=== PATIENT | male | born 1960 | race Caucasian/White ===

== ENCOUNTER 2016-06-19 14:07 | Inpatient (IN) | payer OTHER ==
[~2016-06-19] VITALS: Ht 177.8 cm; Wt 72.7 kg
[2016-06-19] MEDS ORDERED: DIABETES MED (14:38)
[2016-06-19] MEDS ORDERED: GLC500 (14:38)
[2016-06-19] MEDS ORDERED: ONDANSETRON INJ 2 MG/ML 2 ML VIAL IV STA (14:52)
[2016-06-19] MEDS ORDERED: MoRPHine SULFATE 10 MG/ML CARP/VIAL IV STA (14:52)
[2016-06-19] MEDS ORDERED: SODIUM CHLORIDE 0.9% 1000ML 1,000 ML IV STA ×2 (14:52→16:50)
[2016-06-19] MEDS ORDERED: DIPHTHERIA/TETANUS/PERTUSSIS 0.5 ML SYR/VIAL IM. ONE (15:00)
[2016-06-19] MEDS ORDERED: OPTIRAY 320 IV PRN (15:15)
[2016-06-19 15:16] LABS: ISTAT CREATININE 0.8 mg/dl (0.6-1.3); ISTAT HEMOGLOBIN 17.7 g/dl (14.0-18.0); ISTAT IONIZED CALCIUM 1.18 mmol/l (1.12-1.32)
[2016-06-19 15:17] LABS: HEMATOCRIT 46.7 % (42-52); MEAN CELL VOLUME 83.4 fL (80-100); MEAN CORPUSCULAR HEMOGLOBIN 31.4 pg (25-34); MEAN CORPUSCULAR HGB CONC 37.7 g/dl (32-36); MEAN PLATELET VOLUME 10.5 fL (7.4-10.4); PLATELET COUNT 260 K/uL (130-400); WHITE BLOOD COUNT 18.59 K/uL (4.8-10.8)
[2016-06-19 15:22] LABS: URINE APPEARANCE CLEAR (CLEAR); URINE BILIRUBIN NEG (NEG); URINE COLOR YELLOW; URINE EPITHELIAL CELL AUTO 0-5 /lpf (0-5); URINE NITRITE NEG (NEG); URINE SPECIFIC GRAVITY 1.033 (1.000-1.030); UROBILINOGEN NEG (NEG)
[2016-06-19 15:25] LABS: MANUAL MICROSCOPIC REQUIRED? NO; REVIEW REQ? NO
[2016-06-19 15:37] LABS: PROTHROMBIN TIME (PATIENT) 10.3 SECONDS (9.0-12.0)
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
[2016-06-19] MEDS ORDERED: HYDROmorphone INJ 1 MG/ML SYR IV STA (15:45)
[2016-06-19 15:46] LABS: BASO % 0.2 %; BASO ABS # 0.03 K/uL (0-0.2); COMPLETE YES; EOS % 0.1 %; GIANT PLATELETS 1+; IG% 0.6 %; LYMPH % 5.9 %; LYMPH ABS # 1.09 K/uL (1.2-3.4); MONO % 6.8 %; NEUT % 86.4 %; SPHEROCYTE 2+
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
[2016-06-19 15:54] LABS: ALKALINE PHOSPHATASE 149 U/L (45-117); ALT/SGPT 58 U/L (12-78); AST/SGOT 36 U/L (15-37); BLOOD UREA NITROGEN 14 mg/dl (7-18); BUN/CREATININE RATIO 11.3 (10-20); CALCIUM 9.2 mg/dl (8.5-10.1); CARBON DIOXIDE 24 mmol/L (21-32); CHLORIDE 99 mmol/L (98-107); GLUCOSE 401 mg/dl (70-99); POTASSIUM 3.8 mmol/L (3.5-5.1); SODIUM 136 mmol/L (136-145)
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
[2016-06-19] MEDS ORDERED: NovoLIN-R INSULIN PER UNIT CHARGE SC STA (16:50)
[2016-06-19] MEDS ORDERED: INSULIN HUMAN REGULAR SC STA (16:55)
[2016-06-19] MEDS ORDERED: ONDANSETRON INJ 2 MG/ML 2 ML VIAL IV PRN (17:30)
[2016-06-19] MEDS ORDERED: MAGNESIUM HYDROXIDE SUSP 30 ML UDC PO PRN (17:30)
[2016-06-19] MEDS ORDERED: ACETAMINOPHEN 325 MG TAB PO PRN (17:30)
[2016-06-19] MEDS ORDERED: HydrALAZINE HCL 20 MG/ML VIAL IV. PRN (17:30)
[2016-06-19] MEDS ORDERED: ZOLPIDEM TARTRATE 5 MG TAB PO PRN (17:30)
[2016-06-19] MEDS ORDERED: ALUMINUM/MAGNESIUM/SIMETH (MAALOX MAX) 30 ML UDC PO PRN (17:30)
[2016-06-19] MEDS ORDERED: POLYETHYLENE (MIRALAX) 17 GM PACK PO PRN (17:30)
[2016-06-19] MEDS ORDERED: HYDROCODONE/ACETAMOPHEN 5/325MG TAB PO PRN (17:30)
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
[2016-06-19 18:57] LABS: BLOOD UREA NITROGEN 11 mg/dl (7-18); BUN/CREATININE RATIO 10.9 (10-20); C-REACTIVE PROTEIN < 0.29 mg/dl (0-0.29); CALCIUM 8.5 mg/dl (8.5-10.1); CARBON DIOXIDE 28 mmol/L (21-32); CHLORIDE 104 mmol/L (98-107); GLUCOSE 288 mg/dl (70-99); PHOSPHORUS 2.8 mg/dl (2.5-4.9); POTASSIUM 4.2 mmol/L (3.5-5.1); SODIUM 139 mmol/L (136-145)
[2016-06-19 19:29] VITALS: BP 167/101; PULSE 73; TEMP 37; O2SAT 96; BMI 21.8
[2016-06-19] MEDS ORDERED: GLUCAGON FOR INJ 1 MG VIAL SQ PRN (19:30)
[2016-06-19] MEDS ORDERED: GLUCOSE 40% GEL 15 GM TUBE PO PRN (19:30)
[2016-06-19] MEDS ORDERED: DEXTROSE 50% 50 ML SYR IV PRN (19:30)
[2016-06-19] MEDS ORDERED: GLUCOSE 10 TABS/TUBE PO PRN (19:30)
[2016-06-19] MEDS ORDERED: LISINOPRIL 5 MG TAB PO ONE (19:30)
[2016-06-19] MEDS: HYDROCODONE/ACETAMOPHEN 5/325MG TAB PO PRN (19:34)
[2016-06-19] MEDS ORDERED: PANTOprazole SOD 40 MG TAB PO ONE (19:45)
[2016-06-19] MEDS: SODIUM CHLORIDE 0.9% 1000ML 1,000 ML IV SCH (19:56)
[2016-06-19] MEDS: HEPARIN SOD 5000 UNIT/0.5 ML CARP SQ SCH (19:57)
[2016-06-19 20:00] VITALS: O2SAT 96
[2016-06-19] MEDS: MoRPHine SULFATE 4 MG/ML 1 ML CARP\\VIAL IV PRN (20:00)
[2016-06-19] MEDS ORDERED: INSULIN GLARGINE SOLOSTAR 100 UNITS/ML 3 ML PEN SC SCH (21:00)
[2016-06-19] MEDS ORDERED: HEPARIN SOD 5000 UNIT/0.5 ML CARP SQ SCH (21:00)
[2016-06-19] MEDS: INSULIN ASPART 100 UNITS/ML 3 ML PEN SC SCH (21:11)
[2016-06-19 21:24] VITALS: BP 156/95
[2016-06-20] VITALS (9 sets, daily range): BP systolic 103–168; BP diastolic 68–102; PULSE 55–89; TEMP 37–37.4; O2SAT 92–98
[2016-06-20 00:29] LABS: BUN/CREATININE RATIO 10.2 (10-20); CALCIUM 8.4 mg/dl (8.5-10.1); CREATININE 0.91 mg/dl (0.60-1.40); POTASSIUM 3.8 mmol/L (3.5-5.1)
[2016-06-20] MEDS: HYDROCODONE/ACETAMOPHEN 5/325MG TAB PO PRN (03:05)
[2016-06-20 05:59] LABS: ESTIMATED AVERAGE GLUCOSE 295 mg/dl; HA1C FLAG Normal (Normal)
[2016-06-20] MEDS: SODIUM CHLORIDE 0.9% 1000ML 1,000 ML IV SCH ×4 (07:21→14:12)
[2016-06-20] MEDS: LISINOPRIL 5 MG TAB PO SCH (07:58)
[2016-06-20] MEDS: HEPARIN SOD 5000 UNIT/0.5 ML CARP SQ SCH (07:58)
[2016-06-20] MEDS: PANTOprazole SOD 40 MG TAB PO SCH (07:58)
[2016-06-20] MEDS: MoRPHine SULFATE 4 MG/ML 1 ML CARP\\VIAL IV PRN (08:00)
[2016-06-20] MEDS: INSULIN ASPART 100 UNITS/ML 3 ML PEN SC SCH ×3 (08:26→19:22)
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
[2016-06-20] MEDS ORDERED: INSULIN GLARGINE SOLOSTAR 100 UNITS/ML 3 ML PEN SC SCH ×2 (10:30→21:00)
[2016-06-20] MEDS: LIDODERM (LIDOCAINE) PATCH 5% TD SCH (11:25)
[2016-06-20 11:55] LABS: CKMB/CK RATIO 0.7 (0-3.0)
[2016-06-20] MEDS: HYDROmorphone INJ 0.5 MG/0.5 ML SYR IV PRN ×3 (13:43→23:57)
--- NOTE | 2016-06-20 13:44 | DIAGNOSTIC IMAGING REPORT ---
RIGHT SHOULDER 2 VIEWS; RIGHT CLAVICLE 2 VIEWS CLINICAL HISTORY: Right shoulder pain. FINDINGS: 2 views of the right shoulder and 2 views of the right clavicle are obtained. Correlation is made with chest CT dated 06/19/2016. The skeletal structures are well mineralized. There is no radiographic evidence of fracture involving the right clavicle or the right shoulder. The right sternoclavicular and acromioclavicular joints are well-maintained. The glenohumeral articulation is preserved. The overlying soft tissues are within normal limits. The visualized right lung parenchyma appears clear. IMPRESSION: 1. Unremarkable radiographic assessment of the right shoulder and the right clavicle. 2. These were better assessed on yesterday's chest CT. Electronically signed by: Santo Blake M.D. 06/20/2016 1:43 PM Dictated Date/Time: 06/20/2016 1:39 PM
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
[2016-06-20] MEDS: ACETAMINOPHEN 500 MG TAB PO SCH ×2 (14:00→22:04)
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
[2016-06-20] MEDS ORDERED: ENOXAPARIN 40 MG/0.4 ML SYR SQ ONE (21:00)
[2016-06-20] MEDS ORDERED: HYDROmorphone INJ 1 MG/ML SYR IV ONE (21:45)
[2016-06-20] MEDS ORDERED: NURSING VERBAL MED ORDER ONE (21:45)
[2016-06-21] VITALS (10 sets, daily range): BP systolic 131–154; BP diastolic 80–95; PULSE 67–84; TEMP 36.6–37.3; O2SAT 93–95; BMI 22.9
[2016-06-21] MEDS: ACETAMINOPHEN 500 MG TAB PO SCH (05:36)
[2016-06-21] MEDS: HYDROmorphone INJ 0.5 MG/0.5 ML SYR IV PRN ×5 (05:37→22:25)
[2016-06-21 06:17] LABS: CALCIUM 8.3 mg/dl (8.5-10.1); CREATININE 0.98 mg/dl (0.60-1.40); POTASSIUM 3.6 mmol/L (3.5-5.1)
[2016-06-21] MEDS: KETOROLAC TROMETHAMINE 30 MG/ML VIAL IV SCH ×3 (08:12→19:43)
[2016-06-21] MEDS: INSULIN ASPART 100 UNITS/ML 3 ML PEN SC SCH ×5 (08:20→22:31)
[2016-06-21] MEDS: PANTOprazole SOD 40 MG TAB PO SCH (08:24)
[2016-06-21] MEDS: LISINOPRIL 5 MG TAB PO SCH (08:24)
[2016-06-21] MEDS: LIDODERM (LIDOCAINE) PATCH 5% TD SCH (08:24)
[2016-06-21] MEDS: INSULIN GLARGINE SOLOSTAR 100 UNITS/ML 3 ML PEN SC SCH ×2 (09:20→22:32)
[2016-06-21] MEDS: ERGOCALCIFEROL 50,000 INTER.UNIT CAP PO SCH (09:40)
--- NOTE | 2016-06-21 10:58 | DIAGNOSTIC IMAGING REPORT ---
CHEST ONE VIEW PORTABLE CLINICAL HISTORY: eval for subcu emphysema, pneumothorax on R, etc COMPARISON STUDY: No previous studies for comparison. FINDINGS: As well as clear. No evidence pneumothorax. Atelectasis left base. No evidence for cardiac enlargement. IMPRESSION: Platelike atelectasis left base. Otherwise negative study. No evidence pneumothorax or subcutaneous emphysema Electronically signed by: Jacinto Adair M.D. 06/21/2016 10:57 AM Dictated Date/Time: 06/21/2016 10:56 AM
[2016-06-21] MEDS: ENOXAPARIN 40 MG/0.4 ML SYR SQ SCH (11:00)
[2016-06-21] MEDS ORDERED: ACETAMINOPHEN 500 MG TAB PO PRN (14:00)
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
[2016-06-21] MEDS ORDERED: SENNA 8.6 MG TAB PO ONE (16:00)
[2016-06-21] MEDS: POLYETHYLENE (MIRALAX) 17 GM PACK PO SCH (16:00)
[2016-06-21] MEDS: CARISOPRODOL 350 MG TAB PO PRN (18:31)
[2016-06-22] VITALS (8 sets, daily range): BP systolic 100–130; BP diastolic 63–73; PULSE 55–69; TEMP 36.5–37.2; O2SAT 92–96; BMI 23.0
[2016-06-22] MEDS: KETOROLAC TROMETHAMINE 30 MG/ML VIAL IV SCH (01:53)
[2016-06-22] MEDS: CARISOPRODOL 350 MG TAB PO PRN ×2 (02:26→17:02)
[2016-06-22] MEDS: ACETAMINOPHEN 500 MG TAB PO PRN ×2 (02:27→22:07)
[2016-06-22] MEDS: HYDROmorphone INJ 0.5 MG/0.5 ML SYR IV PRN ×5 (02:33→22:08)
[2016-06-22 06:33] LABS: HEMATOCRIT 37.4 % (42-52); MEAN CELL VOLUME 86.2 fL (80-100); MEAN CORPUSCULAR HEMOGLOBIN 30.9 pg (25-34); MEAN CORPUSCULAR HGB CONC 35.8 g/dl (32-36); MEAN PLATELET VOLUME 10.1 fL (7.4-10.4); PLATELET COUNT 214 K/uL (130-400); RED BLOOD COUNT 4.34 M/uL (4.7-6.1); WHITE BLOOD COUNT 11.65 K/uL (4.8-10.8)
[2016-06-22 07:03] LABS: BUN/CREATININE RATIO 26.3 (10-20); CALCIUM 8.3 mg/dl (8.5-10.1); CREATININE 1.2 mg/dl (0.60-1.40); POTASSIUM 3.8 mmol/L (3.5-5.1)
[2016-06-22] MEDS: OXYCODONE HCL IR 5 MG TAB (IMMEDIATE RELEASE) PO PRN ×2 (08:49→16:14)
[2016-06-22] MEDS: LISINOPRIL 5 MG TAB PO SCH (08:50)
[2016-06-22] MEDS: PANTOprazole SOD 40 MG TAB PO SCH (08:51)
[2016-06-22] MEDS: LIDODERM (LIDOCAINE) PATCH 5% TD SCH (08:52)
[2016-06-22] MEDS: ENOXAPARIN 40 MG/0.4 ML SYR SQ SCH (08:52)
[2016-06-22] MEDS: SENNA 8.6 MG TAB PO SCH (08:53)
[2016-06-22] MEDS: POLYETHYLENE (MIRALAX) 17 GM PACK PO SCH (08:53)
[2016-06-22] MEDS: INSULIN GLARGINE SOLOSTAR 100 UNITS/ML 3 ML PEN SC SCH ×2 (09:14→22:16)
[2016-06-22] MEDS: INSULIN ASPART 100 UNITS/ML 3 ML PEN SC SCH ×4 (09:14→21:00)
[2016-06-22] MEDS ORDERED: PHARMACY GLYCEMIC MGMT CONSULT PRN (11:06)
[2016-06-22] MEDS ORDERED: FENTANYL 12 MCG/HR TDSY TD SCH (12:30)
--- NOTE | 2016-06-22 13:42 | Pharmacy Progress Note ---
Glycemic Control Intl Consult Date of Service Jun 22, 2016. Scope Glycemic Pharmacist consulted for glycemic control and to write orders per [facility] inpatient glycemic control protocol Objective Weight (Kilograms): 72.700 Accuchecks BSG (last 24hrs): Test 06/21/16 13:33 06/21/16 18:35 06/21/16 22:24 06/22/16 06:07 Bedside Glucose 292 mg/dl (70-99) 160 mg/dl (70-99) 206 mg/dl (70-99) Random Glucose 255 mg/dl (70-99) Test 06/22/16 06:54 06/22/16 11:41 Bedside Glucose 285 mg/dl (70-99) 165 mg/dl (70-99) Laboratory Data (last 24hrs) Test 06/22/16 06:07 Anion Gap 11.0 mmol/L BUN/Creatinine Ratio 26.3 Blood Urea Nitrogen 32 mg/dl Creatinine 1.20 mg/dl Potassium Level 3.8 mmol/L Sodium Level 138 mmol/L White Blood Count 11.65 K/uL HbA1c Test 06/19/16 13:00 Hemoglobin A1c 11.9 % (4.5-5.6) H Recent Pertinent Medications Outpatient Anti-diabetic Regimen: * Metformin - unknown dose The patient is currently receiving: * Basal insulin: Lantus 16 units every 12 hours * Correctional Insulin: Novolog Correction per scale ACHS Goal Range: Low 100 mg/dL - High 150 mg/dL Correction Factor: 18 mg/dL/unit * Prandial insulin: Per carb ratio of 1 unit per 6 grams CHO consumed Risk Factors for Insulin Resistance: * Physiological stress 2nd pain * Diet: T1DM/Kosher Assessment & Plan ASSESSMENT: * ADA & AACE recommend a goal blood sugar range 140-180 mg/dl for the majority of critically ill & non-critically ill patients. However, more stringent targets may be selected in individual cases. * 55 yo M with ?T2DM vs. T1DM not well controlled on metformin alone. Estimated average glucose 295 mg/dL * Per Brissa (certified lactation educator) * Pt reports 10 yr hs type 2 DM on pills then states A1c went from 7-9% then 13 % a few years back. * He states he was told~ 1 yr ago to start insulin but he did not. * Per Dr. Cedillo * His eating patterns while hospitalized have been very erratic and are very high in carbohydrates due to his strict Cheondoism customs & diet. * He also tends to be grazing throughout the day making carb counting and covering the carbs difficult. * Both Brissa and Dr. Cedillo have discussed need for insulin as outpatient * Tight inpatient and outpatient glycemic control may prove difficult * Ethan hebert RN - notes that 285 mg/dL this AM was likely post-prandial. Will therefore maintain current Lantus dose but will add parameters for dose reduction based on BSG * Correction factor and carb ratio both tightened last night. Lunch BSG good today at 165 mg/dL. No change for now. * Will add overnight check both to better assess fasting BSG and to provide additional insulin if necessary PLAN FOR INPATIENT GLYCEMIC CONTROL: * Basal insulin with LANTUS SQ BID based on BSG * 10 units for BSG < 110 mg/dL * 16 units for BSG 110 mg/dL or greater * Correctional Insulin with NOVOLOG per scale ACHS or Q6hrs while NPO - add 0200 check * Goal Range: Low 100 mg/dL - High 150 mg/dL * Correction Factor: 18 mg/dL/unit * Nutritional / Prandial insulin per carb ratio of 1 unit per 6 grams CHO consumed RECOMMENDATIONS FOR DISCHARGE * Will require basal/bolus. Cannot yet determine specific dosing needs * Cost may be an issue (per Brissa) * Please note that the plan above was derived based on current level of insulin resistance and hospital stress. These recommendations are appropriate for inpatient admission only. Plan of care upon discharge will need to be reassessed to avoid potential outpatient hypo/hyperglycemia. Thank you.
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
[2016-06-22] MEDS ORDERED: NURSING VERBAL MED ORDER ONE (15:30)
[2016-06-22] MEDS: CHECK FENTANYL PATCH PLACEMENT SCH ×2 (15:31→23:15)
[2016-06-22] MEDS: DIAZEPAM 5MG TAB PO SCH (22:06)
[2016-06-22] MEDS: DICLOFENAC SOD EC 75 MG TABCR PO SCH (22:07)
[2016-06-23] MEDS ORDERED: INSULIN ASPART 100 UNITS/ML 3 ML PEN SC ONE (02:00)
[2016-06-23 07:11] VITALS: BP 138/77; PULSE 60; TEMP 36.7; O2SAT 97
[2016-06-23] MEDS: HYDROmorphone INJ 0.5 MG/0.5 ML SYR IV PRN (07:21)
[2016-06-23] MEDS: CHECK FENTANYL PATCH PLACEMENT SCH ×2 (07:26→15:15)
[2016-06-23] MEDS: ACETAMINOPHEN 500 MG TAB PO PRN (07:56)
[2016-06-23 08:40] LABS: BASO % 0.4 %; BASO ABS # 0.04 K/uL (0-0.2); COMPLETE YES; EOS % 1.5 %; HEMATOCRIT 41.4 % (42-52); IG% 0.4 %; LYMPH % 12.6 %; MEAN CELL VOLUME 86.6 fL (80-100); MEAN CORPUSCULAR HEMOGLOBIN 30.8 pg (25-34); MEAN CORPUSCULAR HGB CONC 35.5 g/dl (32-36); MEAN PLATELET VOLUME 9.9 fL (7.4-10.4); MONO % 10.6 %; NEUT % 74.5 %; PLATELET COUNT 241 K/uL (130-400); RED BLOOD COUNT 4.78 M/uL (4.7-6.1); WHITE BLOOD COUNT 10.31 K/uL (4.8-10.8)
[2016-06-23] MEDS: DICLOFENAC SOD EC 75 MG TABCR PO SCH ×2 (08:56→20:52)
[2016-06-23] MEDS: POLYETHYLENE (MIRALAX) 17 GM PACK PO SCH (09:00)
[2016-06-23] MEDS: INSULIN GLARGINE SOLOSTAR 100 UNITS/ML 3 ML PEN SC SCH ×2 (09:03→20:59)
[2016-06-23 09:05] LABS: BUN/CREATININE RATIO 22.6 (10-20); CALCIUM 9.3 mg/dl (8.5-10.1); POTASSIUM 3.7 mmol/L (3.5-5.1)
[2016-06-23] MEDS: LISINOPRIL 5 MG TAB PO SCH (09:45)
[2016-06-23] MEDS: SENNA 8.6 MG TAB PO SCH (09:46)
[2016-06-23] MEDS: PANTOprazole SOD 40 MG TAB PO SCH (09:46)
[2016-06-23] MEDS: LIDODERM (LIDOCAINE) PATCH 5% TD SCH (09:47)
[2016-06-23] MEDS: INSULIN ASPART 100 UNITS/ML 3 ML PEN SC SCH ×4 (09:51→20:58)
[2016-06-23] MEDS: CARISOPRODOL 350 MG TAB PO PRN ×2 (09:54→22:35)
[2016-06-23] MEDS ORDERED: FENTANYL PATCH REMOVE & WASTE SCH (12:59)
[2016-06-23] MEDS ORDERED: FENTANYL 25 MCG/HR TDSY TD SCH (13:00)
[2016-06-23 15:06] VITALS: BP 134/87; PULSE 66; TEMP 36.6; O2SAT 96
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
[2016-06-23] MEDS ORDERED: METHYLPREDNISOLONE IV 125 MG in SYRINGE 0 ML IV ONE (17:00)
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
[2016-06-23] MEDS ORDERED: GADAVIST IV PRN (19:15)
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
[2016-06-23] MEDS: DIAZEPAM 5MG TAB PO SCH (20:51)
[2016-06-23] MEDS: OXYCODONE HCL IR 5 MG TAB (IMMEDIATE RELEASE) PO PRN (22:28)
[2016-06-23 23:05] VITALS: BP 122/72; PULSE 61; TEMP 36.9; O2SAT 95
[2016-06-24] MEDS: INSULIN ASPART 100 UNITS/ML 3 ML PEN SC SCH ×6 (00:24→20:51)
[2016-06-24] MEDS: CHECK FENTANYL PATCH PLACEMENT SCH ×4 (00:27→23:45)
[2016-06-24] MEDS: ACETAMINOPHEN 500 MG TAB PO PRN (00:36)
[2016-06-24] MEDS: METHYLPREDNISOLONE 4 MG TAB PO SCH ×4 (06:22→20:57)
[2016-06-24] MEDS: CARISOPRODOL 350 MG TAB PO PRN (07:23)
[2016-06-24] MEDS: OXYCODONE HCL IR 5 MG TAB (IMMEDIATE RELEASE) PO PRN ×2 (07:24→21:38)
[2016-06-24] MEDS ORDERED: METHYLPREDNISOLONE 4MG TAB, 6 DAY TAPER PO SCH (07:30)
[2016-06-24 08:16] VITALS: BP 115/70; PULSE 62; TEMP 36.6; O2SAT 94
[2016-06-24] MEDS: PANTOprazole SOD 40 MG TAB PO SCH (08:25)
[2016-06-24 08:27] VITALS: O2SAT 94
[2016-06-24] MEDS: DICLOFENAC SOD EC 75 MG TABCR PO SCH ×2 (08:28→20:57)
[2016-06-24] MEDS: SENNA 8.6 MG TAB PO SCH (08:30)
[2016-06-24] MEDS: POLYETHYLENE (MIRALAX) 17 GM PACK PO SCH (08:30)
[2016-06-24] MEDS: LISINOPRIL 5 MG TAB PO SCH (08:30)
[2016-06-24] MEDS: INSULIN GLARGINE SOLOSTAR 100 UNITS/ML 3 ML PEN SC SCH ×2 (08:34→20:52)
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
[2016-06-24 15:49] VITALS: BP 113/67; PULSE 64; TEMP 36.7; O2SAT 94
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
[2016-06-24] MEDS: DIAZEPAM 5MG TAB PO SCH (23:44)
[2016-06-24 23:49] VITALS: BP 131/79; PULSE 54; TEMP 36.4; O2SAT 96
[2016-06-25] MEDS: INSULIN ASPART 100 UNITS/ML 3 ML PEN SC SCH ×6 (01:03→21:24)
[2016-06-25] MEDS: CARISOPRODOL 350 MG TAB PO PRN ×2 (04:52→16:00)
[2016-06-25] MEDS: METHYLPREDNISOLONE 4 MG TAB PO SCH ×4 (06:31→18:08)
[2016-06-25 06:42] LABS: HEMATOCRIT 37.1 % (42-52); MEAN CELL VOLUME 86.7 fL (80-100); MEAN CORPUSCULAR HEMOGLOBIN 31.1 pg (25-34); MEAN CORPUSCULAR HGB CONC 35.8 g/dl (32-36); MEAN PLATELET VOLUME 9.7 fL (7.4-10.4); PLATELET COUNT 264 K/uL (130-400); RED BLOOD COUNT 4.28 M/uL (4.7-6.1); WHITE BLOOD COUNT 10.89 K/uL (4.8-10.8)
[2016-06-25 07:13] VITALS: BP 133/83; PULSE 50; TEMP 36.3; O2SAT 95
[2016-06-25] MEDS: OXYCODONE HCL IR 5 MG TAB (IMMEDIATE RELEASE) PO PRN ×3 (07:30→21:19)
[2016-06-25] MEDS: CHECK FENTANYL PATCH PLACEMENT SCH ×2 (07:31→16:02)
[2016-06-25] MEDS: LISINOPRIL 5 MG TAB PO SCH (09:00)
[2016-06-25] MEDS: SENNA 8.6 MG TAB PO SCH (09:00)
[2016-06-25] MEDS: POLYETHYLENE (MIRALAX) 17 GM PACK PO SCH (09:00)
[2016-06-25] MEDS: PANTOprazole SOD 40 MG TAB PO SCH (09:27)
[2016-06-25] MEDS: ERGOCALCIFEROL 50,000 INTER.UNIT CAP PO SCH (09:27)
[2016-06-25] MEDS: DICLOFENAC SOD EC 75 MG TABCR PO SCH ×2 (09:27→21:18)
[2016-06-25] MEDS: INSULIN GLARGINE SOLOSTAR 100 UNITS/ML 3 ML PEN SC SCH ×2 (10:11→21:22)
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
[2016-06-25] MEDS ORDERED: FENTANYL PATCH REMOVE & WASTE SCH (12:29)
[2016-06-25] MEDS ORDERED: INSULIN GLARGINE SOLOSTAR 100 UNITS/ML 3 ML PEN SC ONE (13:15)
[2016-06-25 15:38] VITALS: BP 129/80; PULSE 59; TEMP 36.5; O2SAT 96
[2016-06-25 16:17] VITALS: Ht 177.8 cm; Wt 72.7 kg
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
[2016-06-25] MEDS ORDERED: METHYLPREDNISOLONE 4 MG TAB PO SCH (21:00)
[2016-06-25] MEDS: DIAZEPAM 5MG TAB PO SCH (21:18)
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
[2016-06-25 23:17] VITALS: BP 127/79; PULSE 58; TEMP 36.8; O2SAT 93
[2016-06-26] MEDS: CHECK FENTANYL PATCH PLACEMENT SCH ×2 (00:27→08:19)
[2016-06-26] MEDS: CARISOPRODOL 350 MG TAB PO PRN ×2 (00:30→08:44)
[2016-06-26] MEDS: INSULIN ASPART 100 UNITS/ML 3 ML PEN SC SCH ×3 (00:32→09:22)
[2016-06-26] MEDS: OXYCODONE HCL IR 5 MG TAB (IMMEDIATE RELEASE) PO PRN ×2 (04:24→10:29)
[2016-06-26] MEDS ORDERED: METHYLPREDNISOLONE 4 MG TAB PO SCH (07:00)
[2016-06-26 07:26] LABS: CREATININE 1.2 mg/dl (0.60-1.40)
[2016-06-26 07:28] VITALS: BP 107/69; PULSE 49; TEMP 36.4; O2SAT 96
[2016-06-26] MEDS ORDERED: PRT40 PO (08:30)
[2016-06-26] MEDS ORDERED: OXYC-57 PO (08:30)
[2016-06-26] MEDS ORDERED: SM350 PO (08:30)
[2016-06-26] MEDS ORDERED: VLM5 PO (08:30)
[2016-06-26] MEDS ORDERED: DRGTP25 TD (08:30)
[2016-06-26] MEDS ORDERED: SNK PO (08:30)
[2016-06-26] MEDS ORDERED: VLT75 PO (08:30)
[2016-06-26] MEDS: SENNA 8.6 MG TAB PO SCH (08:45)
[2016-06-26] MEDS: PANTOprazole SOD 40 MG TAB PO SCH (08:45)
[2016-06-26] MEDS: POLYETHYLENE (MIRALAX) 17 GM PACK PO SCH (08:45)
[2016-06-26] MEDS: DICLOFENAC SOD EC 75 MG TABCR PO SCH (08:46)
[2016-06-26] MEDS: LISINOPRIL 5 MG TAB PO SCH (08:46)
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
[2016-06-26] MEDS ORDERED: NURSING DECISION MEDICATION ORDER SCH ×2 (09:00→10:45)
[2016-06-26] MEDS: INSULIN GLARGINE SOLOSTAR 100 UNITS/ML 3 ML PEN SC SCH (09:13)
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
[2016-06-26] MEDS ORDERED: FENTANYL PATCH REMOVE & WASTE SCH (09:29)
[2016-06-26] MEDS ORDERED: FENTANYL 25 MCG/HR TDSY TD SCH (09:30)
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
[2016-06-26 10:08] VITALS: BP 107/69; PULSE 49; TEMP 36.4; O2SAT 96
[2016-06-26] MEDS ORDERED: DICLOFENAC SOD EC 75 MG TABCR PO SCH (11:00)
[2016-06-27] MEDS ORDERED: METHYLPREDNISOLONE 4 MG TAB PO SCH (07:00)
[2016-06-28 03:15] LABS: GLUTAMIC ACID DECARBOXYLASE-65 <5 IU/mL (<5); INSULIN AUTOANTIBODY 36178 <0.4 U/mL (<0.4); ISLET CELL AB NEGATIVE (NEGATIVE)
[2016-06-28] MEDS ORDERED: METHYLPREDNISOLONE 4 MG TAB PO SCH (07:00)
[2016-06-29] MEDS ORDERED: METHYLPREDNISOLONE 4 MG TAB PO SCH (07:00)
== END 2016-06-26 11:45 | disposition home or self-care (01) | DRG 552 ==
LOC: ENRESERVTM → ENRESERVDT → EDBD 14:07 → C.EDB 14:09 → C.2T 19:13 → C.2E 06-20 18:46 → C.MSN 06-22 15:38
PROVIDERS: ADMIT Hospitalist; ATTEND Hospitalist
DX: S22.029A Unspecified fracture of second thoracic vertebra, initial encounter for closed fracture (principal); S22.42XA Multiple fractures of ribs, left side, initial encounter for closed fracture; E11.65 Type 2 diabetes mellitus with hyperglycemia; I10 Essential (primary) hypertension; F41.9 Anxiety disorder, unspecified; Z91.14 Patient's other noncompliance with medication regimen; D72.829 Elevated white blood cell count, unspecified; S13.4XXA Sprain of ligaments of cervical spine, initial encounter; M62.838 Other muscle spasm; S22.039A Unspecified fracture of third thoracic vertebra, initial encounter for closed fracture; S22.049A Unspecified fracture of fourth thoracic vertebra, initial encounter for closed fracture; V49.49XA Driver injured in collision with other motor vehicles in traffic accident, initial encounter; Y92.410 Unspecified street and highway as the place of occurrence of the external cause; E55.9 Vitamin D deficiency, unspecified